=== PATIENT | male | born 1990 | race Caucasian/White ===

== ENCOUNTER 2016-12-26 09:19 | Emergency (ER) | payer BC, MEDICAID ==
[2016-12-26] MEDS ORDERED: Iopamidol 612 MG/ML 150 ML Bottle IV SCH (11:00)
[2016-12-26] MEDS: Sodium Chloride 0.9% 10 ML Syringe FLUSH PRN ×2 (11:10→12:06)
--- NOTE | 2016-12-26 11:18 | EDM.PDOC ---
[id number] 4d PAIN IN STOMACH AREA AND BACK Time Seen by Provider: 12/26/16 09:50 Source: Reports: Patient History Limitations: Reports: No limitations - History of Present Illness INITIAL COMMENTS - FREE TEXT/NARRATIVE: 18-year-old male with persistent left upper quadrant abdominal pain for the past week which is slowly worsening. He has a history of medication-induced pancreatitis and ulcerative colitis. He has been taking the medication for the past 3 months that they originally thought may be inducing pancreatitis and he has been tolerating it well. No fevers or chills. No persistent nausea or vomiting. Timing/Duration: Reports: Day(s): (6-7 days) Location: [facility] Quality: Reports: ache Severity: moderate Associated Symptoms: Reports: loss of appetite. Denies: groin pain, fever/ chills, malaise, nausea/vomiting - Related Data Allergies/ADRs: Allergies Allergy/AdvReac Type Severity Reaction Status Date / Time balsalazide Allergy Other Verified 07/28/16 09:07 sulfasalazine Allergy Abdominal Verified 07/28/16 09:09 Pain Home Meds: Home Meds Balsalazide Disodium 2,250 mg PO TID 12/26/16 [History] Past Medical History Gastrointestinal History: Reports: Inflammatory bowel disease, Other (see below) Other Gastrointestinal History: ulcerative cholitis Dermatologic History: Reports: Eczema - Infectious Disease History Infectious Disease History: Reports: Chicken pox - Past Surgical History GI Surgical History: Reports: Colonoscopy Social & Family History - Family History Family Medical History: Noncontributory GI: Reports: Other (see below) Other GI Family History: mother ulcerative colitis - Tobacco Use Smoking Status *Q: Never Smoker Years of Tobacco use: 10 Packs/Tins Daily: 0.5 Used Tobacco, but Quit: Yes Month Tobacco Last Used: 03/10 Second Hand Smoke Exposure: No - Caffeine Use Caffeine Use: Reports: Soda Other Caffeine Use: 1 soda a day - Alcohol Use Days Per Week of Alcohol Use: 5 Number of Drinks Per Day: 2 Total Drinks Per Week: 10 - Recreational Drug Use Recreational Drug Use: No ED ROS GENERAL - Review of Systems Review Of Systems: See Below Constitutional: Denies: fever, chills Respiratory: Denies: Shortness of Breath Cardiovascular: Denies: Chest pain GI/Abdominal: Reports: Abdominal pain, Nausea. Denies: Vomiting : Reports: no symptoms Skin: Reports: no symptoms Neurological: Reports: No Symptoms Psychiatric: Reports: No symptoms ED EXAM, GI/ABD - Physical Exam Exam: See Below Exam Limited By: No limitations General Appearance: alert, no apparent distress Eyes: bilateral: normal appearance (No jaundice) Respiratory/Chest: no respiratory distress, lungs clear Cardiovascular: regular rate, rhythm GI/Abdominal: normal bowel sounds, soft, tenderness (Patient is tender in the left upper quadrant without guarding). No: guarding, rebound Neurological: alert, oriented Psychiatric: normal affect, normal mood Skin Exam: Warm, Dry. No: Jaundice Course - Vital Signs Last Recorded V/S: Last Vital Signs Temp 98.1 F 12/26/16 14:00 Pulse 102 H 12/26/16 14:00 Resp 14 12/26/16 14:00 BP 127/72 12/26/16 14:00 Pulse Ox 97 12/26/16 14:00 - Orders/Labs/Meds Labs: Laboratory Tests 12/26/16 12/26/16 Range/Units 10:22 10:22 WBC 9.3 (4.5-11.0) K/uL RBC 5.09 (4.30-5.90) M/uL Hgb 14.4 (12.0-15.0) g/dL Hct 40.6 (40.0-54.0) % MCV 80 (80-98) fL MCH 28 (27-31) pg MCHC 36 (32-36) % Plt Count 185 (150-400) K/uL Neut % (Auto) 72 H (36-66) % Lymph % (Auto) 16 L (24-44) % Dewitt % (Auto) 10 H (2-6) % Eos % (Auto) 1 L (2-4) % Baso % (Auto) 0 (0-1) % Sodium 141 (140-148) mmol/L Potassium 3.9 (3.6-5.2) mmol/L Chloride 104 (100-108) mmol/L Carbon Dioxide 27 (21-32) mmol/L Anion Gap 10.4 (5.0-14.0) mmol/L BUN 12 (7-18) mg/dL Creatinine 1.1 (0.8-1.3) mg/dL Est Cr Clr Drug Dosing 109.89 mL/min Estimated GFR (MDRD) > 60 (>60) Glucose 125 H (74-106) mg/dL Calcium 8.7 (8.5-10.1) mg/dL Total Bilirubin 1.6 H (0.2-1.0) mg/dL AST 14 L D (15-37) U/L ALT 25 D (12-78) U/L Alkaline Phosphatase 60 (46-116) U/L Total Protein 7.7 (6.4-8.2) g/dL Albumin 4.1 (3.4-5.0) g/dL Globulin 3.6 H (2.3-3.5) g/dL Albumin/Globulin Ratio 1.1 L (1.2-2.2) Amylase 138 H D (25-115) U/L Lipase 2332 H (73-393) U/L Meds: Medications Discontinued Medications Generic Name Dose Route Start Last Admin Trade Name Freq PRN Reason Stop Dose Admin Sodium Chloride 85 mls @ 3 mls/sec 12/26/16 10:57 12/26/16 11:10 Normal Saline IV 12/26/16 10:58 3 mls/sec ONETIME ONE Administration Lactated Ringer's 1,000 mls @ 500 mls/hr 12/26/16 11:45 12/26/16 12:00 Ringers, Lactated IV 500 mls/hr ASDIRECTED JOSÉ Administration Iopamidol 150 ml 12/26/16 11:00 12/26/16 11:11 Isovue-300 (61%) IV 150 ml . DIRECTED JOSÉ Administration Ketorolac Tromethamine 30 mg 12/26/16 11:43 12/26/16 11:56 Toradol IVPUSH 12/26/16 11:44 30 mg ONETIME ONE Administration Sodium Chloride 10 ml 12/26/16 10:57 12/26/16 12:06 Saline Flush FLUSH 10 ml ONETIME PRN Administration PER RADIOLOGY PROTOCOL - Re-Assessments/Exams Free Text/Narrative Re-Assessment/Exam: 12/26/16 11:20 CBC CMP amylase and lipase were obtained, his lipase was significantly elevated at 2300. Amylase was also mildly elevated. White count was normal. 12/26/16 11:20 Bilirubin was 1.6 but all other liver studies were normal, calcium was normal. Creatinine and GFR were normal so a CT of the abdomen and pelvis with IV contrast was obtained. 12/26/16 15:23 CT confirmed evidence of pancreatitis, no other findings. Labs were otherwise reassuring. After discussing his condition with his residential field manager, he was given 1 L of lactated Ringer and was discharged to increase diet as tolerated and stop his ulcerative colitis medication. He will return if worsening Departure - Departure Time of Disposition: 14:20 Disposition: Home, Self-Care 01 Condition: good Clinical Impression: Pancreatitis Qualifiers: Chronicity: acute Pancreatitis type: drug induced Acute pancreatitis complication: unspecified Qualified Code(s): K85.30 - Drug induced acute pancreatitis without necrosis or infection Instructions: Acute Pancreatitis, [id number] Referrals: Jd Mills MD [Primary Care Provider] - Forms: ED Department Discharge Care Plan Goals: Just liquids for the next 48 hours then increase diet as tolerated. Use pain control and nausea medications as prescribed. Return if worsening at any time. Otherwise recheck with your residential field manager as planned.
--- NOTE | 2016-12-26 11:41 | CT ---
Abdomen Pelvis w Cont HISTORY: assess pancreatitis Axial spiral enhanced CT scan of abdomen and pelvis was obtained using IV contrast only. Coronal and sagittal reconstructions were obtained. COMPARISON: CT abdomen and pelvis, 06/07/2016. FINDINGS: Heart size is within normal limits. Lung bases are clear. No focal abnormality of the live r, spleen, gallbladder, or adrenal glands is identified. There is a small right renal cyst measuring about 1 cm in diameter. This is stable. No hydronephrosis or ureteral dilatation can be seen. There is mild fat stranding adjacent to the body and tail of the pancreas. Body of the pancreas appe ars mildly edematous. Findings are suspicious for early acute pancreatitis. No mass or abnormal flui d collections are seen. I see no pseudocyst formation. Abdominal aorta is unremarkable. No pelvic mass or abnormal fluid collections are seen. There is no pelvic, retroperitoneal, or mesen teric adenopathy. Visualized bowel loops are unremarkable. I see no inflammatory changes of the colo n. There is no free air or free fluid. Bony structures are unremarkable. IMPRESSION: Probable mild acute pancreatitis changes as described above. No other acute intra-abdomi nal or pelvic abnormality is identified. Findings were discussed with Dr. López in the Emergency Department at 1135 hours. Total DLP 680 mGycm
[2016-12-26] MEDS ORDERED: Ketorolac 30 MG/ML SDV IVPUSH ONE (11:43)
[2016-12-26] MEDS ORDERED: Lactated Ringers 1,000 ML IV SCH (11:45)
[2016-12-26 14:20] VITALS: BP 127/72
== END 2016-12-26 14:20 | disposition home or self-care (01) ==
LOC: JP.ED 09:19
DX: K85.30 Drug induced acute pancreatitis without necrosis or infection (principal); Z88.2 Allergy status to sulfonamides; Z87.891 Personal history of nicotine dependence
CPT/HCPCS: 36415; 74177; 80053; 82150; 83690; 85025; 96361; 96374; 99284; J1885; J7030; J7050; J7120